=== PATIENT | female | born 1985 | race Caucasian/White ===

== ENCOUNTER 2018-08-27 02:58 | Emergency (ER) | payer SELFPAY ==
[2018-08-27 04:29] LABS: ABSOLUTE EOSINOPHILS # (AUTO) 0.4 10^3/uL (0.0-0.6); ABSOLUTE LYMPHOCYTES (AUTO) 3.5 10^3/uL (0.5-4.7); ABSOLUTE MONOCYTES (AUTO) 0.7 10^3/uL (0.1-1.4); ABSOLUTE NEUT (AUTO) 8.5 10^3/uL (1.7-8.2); BASOPHILS % (AUTO) 0.3 % (0-2); HEMATOCRIT 37.7 % (36.0-47.0); HEMOGLOBIN 13.3 g/dL (12.0-15.5); LYMPHOCYTES % (AUTO) 26.7 % (13-45); MEAN CORPUSCULAR HEMOGLOBIN 31.4 pg (27.0-33.4); MEAN CORPUSCULAR HGB CONC 35.3 g/dL (32.0-36.0); MEAN CORPUSCULAR VOLUME 89 fl (80-97); MONOCYTES % (AUTO) 5.4 % (3-13); PLATELET COUNT 364 10^3/uL (150-450); RED BLOOD COUNT 4.23 10^6/uL (3.72-5.28); RED CELL DISTRIBUTION WIDTH 12.9 % (11.5-14.0); SEGMENTED NEUTROPHILS % (AUTO) 64.6 % (42-78); TOTAL CELLS COUNTED % (AUTO) 100 %; WHITE BLOOD COUNT 13.2 10^3/uL (4.0-10.5)
[2018-08-27 04:39] LABS: APPEARANCE,URINE SLIGHTLY-CLOUDY; BILIRUBIN,URINE NEGATIVE (NEGATIVE); COLOR,URINE YELLOW; GLUCOSE, URINE NEGATIVE (NEGATIVE); KETONES,URINE NEGATIVE (NEGATIVE); LEUKOCYTE ESTERASE,URINE NEGATIVE (NEGATIVE); NITRITE,URINE NEGATIVE (NEGATIVE); PROTEIN,URINE NEGATIVE (NEGATIVE); URINE SPECIFIC GRAVITY 1.027
[2018-08-27 04:43] LABS: ALANINE AMINOTRANSFERASE 18 U/L (9-52); ALKALINE PHOSPHATASE 81 U/L (38-126); ANION GAP 10 (5-19); ASPARTATE AMINO TRANSFERASE 16 U/L (14-36); BILIRUBIN,DIRECT 0.2 mg/dL (0.0-0.4); BILIRUBIN,TOTAL 0.2 mg/dL (0.2-1.3); BLOOD UREA NITROGEN 11 mg/dL (7-20); CALCIUM 9.2 mg/dL (8.4-10.2); CARBON DIOXIDE 24 mmol/L (22-30); CHLORIDE 107 mmol/L (98-107); GLUCOSE 101 mg/dL (75-110); POTASSIUM 4.7 mmol/L (3.6-5.0); SODIUM 141.4 mmol/L (137-145); TOTAL PROTEIN 6.7 g/dL (6.3-8.2)
[2018-08-27] MEDS ORDERED: KETOROLAC TROMETHAMINE INJ/PF 30 MG/1 ML SDV IV ONE (05:12)
[2018-08-27] MEDS ORDERED: ONDANSETRON HCL INJ/PF 4 MG/2 ML SDV IV ONE (05:12)
--- NOTE | 2018-08-27 05:14 | RADIOLOGY REPORT (SQ) ---
CLINICAL HISTORY: RUQ pain, gallbladder, and R flank kidney pain COMPARISON: None. 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 Portal vein is patent and unremarkable. Gallbladder is normally distended without wall thickening or pericholecystic fluid. There are no gallstones. Common bile duct measures 3 mm Right kidney measures 10 cm without hydronephrosis. Abdominal aorta is not aneurysmal. IMPRESSION: Normal study.
[2018-08-27] MEDS ORDERED: NORMAL SALINE 1000 ML 1,000 ML IV ONE (05:29)
--- NOTE | 2018-08-27 05:43 | ER Document Report ---
ED General - General Chief Complaint: Flank Pain Stated Complaint: FLANK PAIN Time Seen by Provider: 08/27/18 03:32 Notes: Patient is a 33-year-old female presenting to the emergency department complaining of right flank pain. Patient states she has had right flank pain radiating to her right upper quadrant for the last 3-4 weeks. Patient states she has a history of kidney stones and initially thought it was just a kidney stone. States she does not have insurance so she does not usually come to the emergency room when she thinks she has kidney stones but states the pain had increased this morning which is why she presents to the emergency room. Patient denies any dysuria, urinary urgency or frequency, vaginal discharge. Patient states she is a little bit nauseated but denies any vomiting or diarrhea. Patient also denies fever. Patient is unsure of her last menstrual period states she has an IUD and does not get her periods regularly. Past medical history: Kidney stones, bipolar, depression, asthma Medications: Latuda, Minipress, Wellbutrin, albuterol Allergies: None Patient admits to cigarette smoking, denies EtOH use or illicit drug use. TRAVEL OUTSIDE OF THE [place] IN LAST 30 DAYS: No Past Medical History - General Information source: Patient - Social History Smoking Status: Current Every Day Smoker Lives with: Family Family History: Reviewed & Not Pertinent Patient has suicidal ideation: No Patient has homicidal ideation: No Renal/ Medical History: Denies: Hx Peritoneal Dialysis Review of Systems - Review of Systems Constitutional: See HPI EENT: No symptoms reported Cardiovascular: No symptoms reported Respiratory: No symptoms reported Gastrointestinal: See HPI Genitourinary: See HPI Female Genitourinary: See HPI Musculoskeletal: No symptoms reported Skin: No symptoms reported Hematologic/Lymphatic: No symptoms reported Neurological/Psychological: No symptoms reported Physical Exam - Vital signs Vitals: Temp Pulse Resp BP Pulse Ox 98.8 F 89 18 139/82 H 99 08/27/18 03:06 08/27/18 03:06 08/27/18 03:06 08/27/18 03:06 08/27/18 03:06 - Notes Notes: GENERAL: Alert, interacts well. No acute distress. HEAD: Normocephalic, atraumatic. EYES: Pupils equal, round, and reactive to light. Extraocular movements intact. ENT: Oral mucosa moist, tongue midline. NECK: Full range of motion. Supple. Trachea midline. LUNGS: Clear to auscultation bilaterally, no wheezes, rales, or rhonchi. No respiratory distress. HEART: Regular rate and rhythm. No murmur ABDOMEN: Soft, Non-distended. Bowel sounds present in all 4 quadrants. Patient has right upper quadrant pain, positive Alarcon sign. No right lower quadrant pain, no McBurney's point tenderness. Patient has no epigastric pain. EXTREMITIES: Moves all 4 extremities spontaneously. No edema, normal radial and dorsalis pedis pulses bilaterally. No cyanosis. BACK: no cervical, thoracic, lumbar midline tenderness. No saddle anesthesia, normal distal neurovascular exam. Patient does have left CVA tenderness. No right CVA tenderness noted NEUROLOGICAL: Alert and oriented x3. Normal speech. cranial nerves II through XII grossly intact PSYCH: Normal affect, normal mood. SKIN: Warm, dry, normal turgor. No rashes or lesions noted. Course - Re-evaluation Re-evalutation: 08/27/18 05:44 Patient's ultrasound is noted to be normal at this time. No cholecystitis noted , no hydronephrosis of the right kidney. No intrarenal stone seen. Patient does have a slight leukocytosis at 13.2. Urine shows no signs of urinary tract infection but does have 4 RBCs. Spec gra 1.027, dehydration treated with normal saline fluid in the emergency room. Patient states after Toradol and Zofran administration she no longer feels nauseated and the abdominal pain has since resolved. Discussed with her ultrasound results at bedside. Patient only has 4 RBCs in her urine potential kidney stone is unlikely at this time, but possible. No signs of cholecystitis. Patient's vitals are stable and she Is awaiting discharge. - Vital Signs Vital signs: Temp Pulse Resp BP Pulse Ox 98.8 F 89 18 139/82 H 99 08/27/18 03:06 08/27/18 03:06 08/27/18 03:06 08/27/18 03:06 08/27/18 03:06 - Laboratory Result Diagrams: 08/27/18 04:25 08/27/18 04:25 Laboratory results interpreted by me: 08/27/18 08/27/18 08/27/18 04:25 04:25 04:25 WBC 13.2 H Absolute Neutrophils 8.5 H Creatinine 0.45 L Urine Urobilinogen 2.0 H Urine Ascorbic Acid 20 H Discharge - Discharge Clinical Impression: Flank pain, Nausea Abdominal pain Qualifiers: Abdominal location: right upper quadrant Qualified Code(s): R10.11 - Right upper quadrant pain Condition: Stable Disposition: HOME, SELF-CARE Instructions: Abdominal Pain ([facility]), Antinausea Medication ([facility]), Toradol Injection ([facility]) Additional Instructions: As we discussed your ultrasound shows no signs of gallbladder disease or fluid around your kidney. Your urine only has a little bit of blood in it but that does not mean you did not pass a kidney stone or are going to pass a kidney stone. You should take antinausea medications as prescribed. Please take over- the-counter Tylenol Motrin for pain. Please return to the emergency room for any other concerning symptoms. A phone number for urology will be provided in this packet. Prescriptions: Ondansetron [Zofran Odt 4 mg Tablet] 1 - 2 tab PO Q4H PRN #[id number] tab.rapdis PRN Reason: For Nausea/Vomiting Referrals: ROBIN RANDALL MD [NO LOCAL MD] - Follow up as needed
[2018-08-27 06:23] VITALS: BP 111/62
== END 2018-08-27 06:23 | disposition home or self-care (01) ==
LOC: ER 02:58
DX: R10.11 Right upper quadrant pain (principal); R11.0 Nausea; R10.9 Unspecified abdominal pain; F17.200 Nicotine dependence, unspecified, uncomplicated
CPT/HCPCS: 99284; 96361; 96374; 96375; 36415; 83690; 85025; 81025; 80053; 81001; 76705; J1885; J2405; J7030

== ENCOUNTER 2018-11-28 16:40 | Emergency (ER) | payer BC ==
--- NOTE | 2018-11-28 17:45 | ER Document Report ---
HPI - HPI Time Seen by Provider: 11/28/18 17:14 Pain Level: 2 Notes: Patient is a 33-year-old female with a history of asthma who presents to the emergency department complaining of mild nasal congestion and discharge over the last couple days with exposure to influenza A recently. Patient states that she came for possible influenza and wanted to be evaluated as she does have a relative who is on chemo. Patient states that she has been staying at home recently just in case. Patient states that she otherwise feels well and is eating and drinking out difficulty. She is urinating normally and having normal bowel movements. Patient states that she normally has an occasional cough with her asthma. She has no other concerns or complaints. Denies any headache, fever, head injury, neck pain, sore throat, chest pain, palpitations, syncope, shortness of breath, wheeze, dyspnea, abdominal pain, nausea/vomiting/diarrhea, urinary retention, dysuria, hematuria, or rash. - ROS Systems Reviewed and Negative: Yes All other systems reviewed and negative - REPRODUCTIVE Reproductive: DENIES: : Past Medical History - Social History Smoking Status: Current Every Day Smoker Family History: Reviewed & Not Pertinent Renal/ Medical History: Denies: Hx Peritoneal Dialysis Vertical Provider Document - CONSTITUTIONAL Agree With Documented VS: Yes Notes: PHYSICAL EXAMINATION: GENERAL: Well-appearing, well-nourished and in no acute distress. A&Ox4. Answers questions appropriately. Moves comfortably w/o notable distress HEAD: Atraumatic, normocephalic. EYES: Pupils equal round and reactive to light, extraocular movements intact, sclera anicteric, conjunctiva are normal. ENT: EAC clear b/l. TM's intact b/l without erythema, fluid, or perforation. Nares patent and with clear discharge. oropharynx no erythema without exudates. No tonsilar hypertrophy without erythema or exudate. No palatine shift. Uvula midline. No tongue protrusion. No drooling, hoarseness, or airway compromise. Moist mucous membranes. No sinus tenderness. NECK: Normal range of motion, supple without lymphadenopathy. No rigidity/meningismus. LUNGS: Breath sounds clear to auscultation bilaterally and equal. No wheezes rales or rhonchi. No retractions HEART: Regular rate and rhythm without murmurs, rubs, gallops. NEUROLOGICAL: Normal speech, normal gait. PSYCH: Normal mood, normal affect. SKIN: Warm, Dry, normal turgor, no rashes or lesions noted. - INFECTION CONTROL TRAVEL OUTSIDE OF THE [place] IN LAST 30 DAYS: No Course - Re-evaluation Re-evalutation: 11/28/18 17:41 Patient is an afebrile, well-hydrated, 33-year-old female who presents to the ED with acute URI, suspect viral. Low clinical suspicion for influenza based on her H&P. Vitals are acceptable. PE is otherwise unremarkable. Reviewed with pt that influenza testing not warranted at this time based on her presentation and our test is only approx 50-60% sensitive otherwise. No other labs or imaging warranted at this time based on H&P. Patient's lungs are clear to auscultation bilaterally without tachycardia, hypoxia, or tachypnea. Patient is tolerating p.o. without any difficulties. Low suspicion for any meningitis, sepsis, peritonsillar/pharyngeal abscess, respiratory compromise, severe dehydration, or other emergent systemic condition at this time. Patient is aware this condition can change from initial presentation and she needs to monitor symptoms closely. Thoroughly reviewed PPE precautions as well as avoidance as primary when deciding to go near the relative that is on chemo. Patient agrees that she will stay at home until she no longer has any cold symptoms, but states that she feels well and came only for precaution. Conservative measures otherwise for symptoms. Recheck with your PCM in 3-5 days. Return to the ED with any worsening/concerning symptoms otherwise as reviewed in discharge. Patient is in agreement. - Vital Signs Vital signs: Temp Pulse Resp BP Pulse Ox 98.0 F 74 18 133/79 H 99 11/28/18 16:51 11/28/18 16:51 11/28/18 16:51 11/28/18 16:51 11/28/18 16:51 Discharge - Discharge Clinical Impression: Acute URI Condition: Stable Disposition: HOME, SELF-CARE Instructions: Upper Respiratory Illness ([facility]) Additional Instructions: Maintain adequate fluid intake Take meds as directed tylenol/ibuprofen as needed over the counter cold medication as needed for symptoms Humidified air may help Wash your hands regularly Wear a mask when coughing Avoid those who are immuno-suppressed if you are feeling at all ill F/u: with your PCM in 3-5 days for a recheck Return to the ED with any fever, worsening pain, chest pain, palpitations, syncope, worsening VELASCO, neck pain/stiffness, shortness of breath, wheezing, drooling, trouble swallowing/breathing, abdominal pain, n/v/d, rash, or worsening/concerning symptoms otherwise. Forms: Elevated Blood Pressure Referrals: [facility] [Provider Group] - Follow up as needed
[2018-11-28 17:57] VITALS: BP 127/73
== END 2018-11-28 19:06 | disposition home or self-care (01) ==
LOC: ER 16:40
DX: J06.9 Acute upper respiratory infection, unspecified (principal); R09.81 Nasal congestion; R09.89 Other specified symptoms and signs involving the circulatory and respiratory systems; F17.200 Nicotine dependence, unspecified, uncomplicated; R05 Cough; J45.909 Unspecified asthma, uncomplicated
CPT/HCPCS: 99283